=== PATIENT | female | born 1980 | race Caucasian/White ===

== ENCOUNTER 2019-11-12 22:28 | Emergency (ER) | payer OTHER ==
[~2019-11-12] VITALS: Ht 180.3 cm; Wt 90.9 kg
[2019-11-12 22:46] VITALS: BP 146/95
== END 2019-11-13 00:05 ==
LOC: ER 22:29
DX: Z02.89 Encounter for other administrative examinations (principal); Z88.8 Allergy status to other drugs, medicaments and biological substances; V49.88XA Car occupant (driver) (passenger) injured in other specified transport accidents, initial encounter; Y93.89 Activity, other specified; Y92.413 State road as the place of occurrence of the external cause; Y99.9 Unspecified external cause status
CPT/HCPCS: 72040; 99283

== ENCOUNTER 2021-09-29 17:17 | Emergency (ER) | payer SELFPAY | END 2021-09-29 17:58 | disposition left against medical advice (07) | LOC: ER 17:19 | DX: J32.9 Chronic sinusitis, unspecified (principal); Z53.21 Procedure and treatment not carried out due to patient leaving prior to being seen by health care provider ==

== ENCOUNTER 2024-05-12 13:13 | Outpatient (CLI) | payer MEDICAID | END 2024-05-12 23:59 | disposition home or self-care (01) | LOC: 64 CT 13:13 | PROVIDERS: ATTEND Family Medicine | DX: J01.91 Acute recurrent sinusitis, unspecified (principal) | CPT/HCPCS: 70486 ==